=== PATIENT | male | born 1985 | race Asian ===

== ENCOUNTER → 2017-11-09 | Outpatient (CLI) | payer OTHER ==
[2017-11-09 12:09] LABS: microscopic required? NO
[2017-11-09 12:33] LABS: UA SPECIFIC GRAVITY <=1.005 (1.005-1.035); urine erythrocyte NEGATIVE (NEGATIVE)
[2017-11-09 12:43] LABS: CHLORIDE SERUM 105 mmol/L (98-107); POTASSIUM SERUM 3.9 mmol/L (3.5-5.1); SODIUM SERUM 141 mmol/L (136-145)
[2017-11-09 13:15] LABS: ALBUMIN 4.2 g/dL (3.4-5.0); ALKALINE PHOSPHATASE 66 U/L (46-116); ALT/SGPT 20 U/L (16-63); AST/SGOT 11 U/L (15-37); BILIRUBIN TOTAL 0.8 mg/dL (0.20-1.00); CARBON DIOXIDE 29.1 mmol/L (21-32); CHOLESTEROL 208 mg/dL (<200); CHOLESTEROL/HDL RATIO 3.2; CREATININE SERUM 0.9 mg/dL (0.7-1.3); GFR1 > 60 mL/min; GLUCOSE SERUM 83 mg/dL (74-106); HDL CHOLESTEROL 66 mg/dL (40-60); TOTAL PROTEIN, SERUM 7.3 g/dL (6.4-8.2); TRIGLYCERIDES 105 mg/dL (<150)
[2017-11-10 08:20] LABS: VITAMIN D 25-HYDROXY 32.6 ng/mL (30.0-100.0)
== END | disposition home or self-care (01) ==
LOC: LB 10:41
DX: I10 Essential (primary) hypertension (principal)